=== PATIENT | male | born 1985 | race American Indian/Alaskan Native ===

== ENCOUNTER 2017-03-03 19:00 | Emergency (ER) | payer SELFPAY ==
[2017-03-03 19:35] LABS: Basophils % (Auto) 0.4 % (0.0-1.8); Eosinophils % (Auto) 2.2 % (0.0-4.3); Hematocrit 40.8 % (35.5-45.6); Hemoglobin 13.7 gm/dl (11.8-15.2); Mean Corpuscular HGB Conc 34 % (32-34); Mean Corpuscular Hemoglobin 29 pg (28-32); Mean Corpuscular Volume 86 fl (84-94); Platelet Count 282 K/mm3 (140-440); Red Blood Count 4.75 M/mm3 (3.65-5.03); Red Cell Distribution Width 13.4 % (13.2-15.2); White Blood Count 6.7 K/mm3 (4.5-11.0)
[2017-03-03 20:02] LABS: Alanine Aminotransferase 53 units/L (7-56); Albumin 4.4 g/dL (3.9-5); Albumin/Globulin Ratio 1.6 %; Alkaline Phosphatase 85 units/L (35-129); Anion Gap 17 mmol/L; BUN/Creatinine Ratio 13; Blood Urea Nitrogen 9 mg/dL (9-20); Calcium 9.5 mg/dL (8.4-10.2); Carbon Dioxide 25 mmol/L (22-30); Chloride 100.6 mmol/L (98-107); Glucose 100 mg/dL (75-100); Sodium 139 mmol/L (137-145); Total Protein 7.2 g/dL (6.3-8.2)
[2017-03-04 02:46] LABS: Urine Drugs of Abuse Note Disclamer
[2017-03-04 02:55] LABS: Mucus,Urine FEW /HPF
[2017-03-04 02:57] LABS: Bilirubin,Urine Negative (Negative); Blood,Urine Negative (Negative); Ketones,Urine Negative (Negative)
[2017-03-04 02:58] LABS: Leukocyte Esterase,Urine Negative (Negative); Nitrite,Urine Negative (Negative); Urobilinogen,Urine < 0.2 mg/dL (<2.0)
[2017-03-04] MEDS ORDERED: ANTIVERT PO ONE (03:08)
[2017-03-04] MEDS ORDERED: NACL 0.9% 1000 ML 1,000 ML IV ONE (03:08)
[2017-03-04] MEDS ORDERED: ZOFRAN IV ONE (03:08)
--- NOTE | 2017-03-04 03:12 | Emergency Department Report ---
ED Dizziness HPI - General Chief Complaint: Dizziness Stated Complaint: DIZZINESS Time Seen by Provider: 03/04/17 02:39 Source: patient Mode of arrival: Ambulatory Limitations: No Limitations - History of Present Illness Initial Comments: Patient complains of dizziness was caused when he gets up from lying position. He also complained of sensation of room spinning with the dizziness. These tend to resolve after standing for a couple of minutes. MD Complaint: dizziness -: Sudden Timing: sudden onset Description: sense of movement, "room spinning" History of Same: No History of Trauma: No Severity: mild Improves With: remaining still Worsens With: movement, position Associated Symptoms: denies other symptoms - Related Data Previous Rx's Medication Instructions Recorded Last Taken Type Meclizine [Antivert] 25 mg PO TID PRN #20 tablet 03/04/17 Unknown Rx Ondansetron [Zofran Odt] 4 mg PO Q8HR PRN 7 Days #15 03/04/17 Unknown Rx tab.rapdis Allergies Allergy/AdvReac Type Severity Reaction Status Date / Time No Known Allergies Allergy Verified 03/03/17 19:15 ED Review of Systems ROS: Stated complaint: DIZZINESS Other details as noted in HPI Comment: All other systems reviewed and negative Constitutional: denies: chills, fever Eyes: denies: eye pain, eye discharge, vision change ENT: denies: ear pain, throat pain Respiratory: denies: cough, shortness of breath, wheezing Cardiovascular: denies: chest pain, palpitations Endocrine: no symptoms reported Gastrointestinal: denies: abdominal pain, nausea, diarrhea Genitourinary: denies: urgency, dysuria Musculoskeletal: denies: back pain, joint swelling, arthralgia Skin: denies: rash, lesions Neurological: denies: headache, weakness, paresthesias Psychiatric: denies: anxiety, depression Hematological/Lymphatic: denies: easy bleeding, easy bruising ED Past Medical Hx - Past Medical History Previous Medical History?: No - Social History Smoking Status: Smoker, Current Status Unknown Substance Use Type: Alcohol - Medications Home Medications: Home Medications Medication Instructions Recorded Confirmed Last Taken Type Meclizine [Antivert] 25 mg PO TID PRN #20 tablet 03/04/17 Unknown Rx Ondansetron [Zofran Odt] 4 mg PO Q8HR PRN 7 Days #15 03/04/17 Unknown Rx tab.rapdis ED Physical Exam - General Limitations: No Limitations General appearance: alert, in no apparent distress - Head Head exam: Present: atraumatic, normocephalic - Eye Eye exam: Present: normal appearance - ENT ENT exam: Present: normal exam, normal orophraynx, mucous membranes moist - Neck Neck exam: Present: normal inspection - Respiratory Respiratory exam: Present: normal lung sounds bilaterally. Absent: respiratory distress - Cardiovascular Cardiovascular Exam: Present: regular rate, normal rhythm. Absent: systolic murmur, diastolic murmur, rubs, gallop - GI/Abdominal GI/Abdominal exam: Present: soft, normal bowel sounds - Rectal Rectal exam: Present: deferred - Extremities Exam Extremities exam: Present: normal inspection - Back Exam Back exam: Present: normal inspection - Neurological Exam Neurological exam: Present: alert, oriented X3 - Psychiatric Psychiatric exam: Present: normal affect, normal mood - Skin Skin exam: Present: warm, dry, intact, normal color. Absent: rash ED Course Vital Signs 03/03/17 03/04/17 03/04/17 19:15 02:14 02:26 Temperature 98.6 F 97.5 F L Pulse Rate 86 56 L Respiratory 16 16 Rate Blood Pressure 126/93 128/79 Blood Pressure 128/79 [Left] O2 Sat by Pulse 100 100 99 Oximetry 03/04/17 03/04/17 03/04/17 03:00 04:00 05:00 Temperature Pulse Rate Respiratory Rate Blood Pressure 115/75 111/68 116/66 Blood Pressure [Left] O2 Sat by Pulse 100 100 100 Oximetry 03/04/17 06:00 Temperature Pulse Rate Respiratory Rate Blood Pressure 106/64 Blood Pressure [Left] O2 Sat by Pulse 100 Oximetry - Reevaluation(s) Reevaluation #1: 03/04/17 06:36 Patient is feeling much better and he said his dizziness has resolved. ED Medical Decision Making - Lab Data Result diagrams: 03/03/17 19:23 03/03/17 19:23 - EKG Data -: EKG Interpreted by Me EKG shows normal: sinus rhythm Rate: normal (90) - EKG Data When compared to previous EKG there are: previous EKG unavailable Interpretation: no acute changes - Differential Diagnosis Vertigo Critical care attestation.: If time is entered above; I have spent that time in minutes in the direct care of this critically ill patient, excluding procedure time. ED Disposition Clinical Impression: Vertigo, Dizziness Disposition: DC-01 TO HOME OR SELFCARE Is pt being admited?: No Does the pt Need Aspirin: No Condition: Stable Instructions: Vertigo (ED), Dizziness (ED) Additional Instructions: Please follow up with your primary care doctor on Wednesday morning. Return to the emergency room if your condition worsens. Prescriptions: Meclizine [Antivert] 25 mg PO TID PRN #20 tablet PRN Reason: Vertigo Ondansetron [Zofran Odt] 4 mg PO Q8HR PRN 7 Days #15 tab.rapdis PRN Reason: Nausea Referrals: PRIMARY CARE, [Primary Care Provider] - 3-5 Days
--- NOTE | 2017-03-04 03:46 | Cat Scan Report ---
FINAL REPORT EXAM: CT HEAD/BRAIN WO CON HISTORY: Dizziness TECHNIQUE: Routine axial imaging was obtained the brain without IV contrast. FINDINGS: There are no attenuation abnormalities. The ventricular system is appropriate in size and is symmetric. The visualized sinuses are clear. The mastoid air cells are well pneumatized. The calvarium appears intact. IMPRESSION: Within normal limits.
[2017-03-04 06:28] VITALS: BP 106/64
== END 2017-03-04 06:57 | disposition home or self-care (01) ==
LOC: ED 19:00
DX: R42 Dizziness and giddiness (principal)
CPT/HCPCS: 36415; 70450; 80053; 80307; 81001; 82140; 83735; 84443; 85025; 93005; 93010; 96361; 96374; 99285; G0480; J2405; J7030; 80320